=== PATIENT | male | born 1965 | race African-American/Black ===

== ENCOUNTER 2019-12-25 19:29 | Emergency (ER) | payer SELFPAY ==
[~2019-12-25] VITALS: Ht 185.4 cm; Wt 112.0 kg
[2019-12-25 19:32] VITALS: BP 141/98
== END 2019-12-25 23:42 | disposition left against medical advice (07) ==
LOC: ER 19:29
DX: R11.10 Vomiting, unspecified (principal); Z53.21 Procedure and treatment not carried out due to patient leaving prior to being seen by health care provider